=== PATIENT | male | born 1960 ===

== ENCOUNTER 2025-04-12 18:55 | Inpatient (IN) | payer MEDICARE, OTHER ==
[~2025-04-12] VITALS: Ht 177.8 cm; Wt 81.0 kg
[2025-04-12 20:44] LABS: APPEARANCE,URINE CLEAR (CLEAR); BILIRUBIN,URINE NEGATIVE (NEGATIVE); COLOR,URINE YELLOW (YELLOW); GLUCOSE, URINE (UA) NEGATIVE (NEGATIVE); KETONES,URINE NEGATIVE (NEGATIVE); LEUKOCYTE ESTERASE ,URINE NEGATIVE (NEGATIVE); NITRATE,URINE NEGATIVE (NEGATIVE); OCCULT BLOOD,URINE NEGATIVE (NEGATIVE); PROTEIN,URINE 30-70 mg/dL (NEGATIVE); SPECIFIC GRAVITIY, URINE 1.027 (1.003-1.030); UROBILINOGEN,URINE <=1.0 mg/dL (<=1.0)
[2025-04-12 20:52] LABS: ALCOHOL, URINE DRUG SCREEN NEGATIVE (NEGATIVE); AMPHET/METH SCREEN,URINE NEGATIVE (NEGATIVE); BARBITURATE SCREEN, URINE NEGATIVE (NEGATIVE); BENZODIAZEPINES SCREEN,URINE NEGATIVE (NEGATIVE); CANNABINOID SCREEN,URINE NEGATIVE (NEGATIVE); COCAINE SCREEN,URINE NEGATIVE (NEGATIVE); METHADONE SCREEN, URINE NEGATIVE (NEGATIVE); OPIATE SCREEN,URINE POSITIVE (NEGATIVE); PHENCYCLIDINE SCREEN,URINE NEGATIVE (NEGATIVE)
[2025-04-13] MEDS: QUEtiapine FUMARATE 100 MG TABLET PO ONE (00:53)
[2025-04-13] MEDS: LORazepam 1 MG TABLET PO ONE (00:53)
[2025-04-13] MEDS: OxyCODONE HCL/ACETAMINOPHEN 5-325 MG TABLET PO ONE (00:53)
[2025-04-13] MEDS: MELATONIN 3 MG TABLET PO ONE (00:54)
[2025-04-13] MEDS: MIRTAZAPINE 15 MG TABLET PO ONE (00:54)
[2025-04-13] MEDS: haloperidoL 5 MG TABLET PO ONE (01:11)
[2025-04-13] MEDS ORDERED: OFLO5DRO OD (01:15)
[2025-04-13] MEDS ORDERED: XALA2.5OS OS (01:15)
[2025-04-13 03:23] LABS: COVID AG,FIA SOURCE NASAL SWAB
[2025-04-13 04:12] LABS: SARS-COV2 (COVID) ANTIGEN,FIA Negative (Negative)
[2025-04-13] MEDS ORDERED: ZOLPIDEM TARTRATE 10 MG TABLET PO PRN (05:30)
[2025-04-13] MEDS: *CLINICAL-CEFEPIME DOSING CLINICAL ONE (05:53)
[2025-04-13] MEDS ORDERED: ONDANSETRON HCL 4 MG/2 ML VIAL IVP PRN (06:00)
[2025-04-13] MEDS: OxyCODONE HCL/ACETAMINOPHEN 10-325 MG TABLET PO PRN (06:05)
[2025-04-13] MEDS: CEFEPIME HCL 2 GM in DEXTROSE 5%-WATER 50 ML IV ONE (06:36)
[2025-04-13] MEDS: HEPARIN SODIUM,PORCINE 5,000 UNITS/ML VIAL SQ SCH (07:42)
[2025-04-13] MEDS: DOCUSATE SODIUM 100 MG CAPSULE PO SCH (09:00)
[2025-04-13] MEDS: haloperidoL 5 MG TABLET PO PRN (14:08)
[2025-04-13] MEDS: LORazepam 2 MG TABLET PO PRN (14:08)
[2025-04-13] MEDS ORDERED: VANCOMYCIN 1GM/WATER(PEG/NADA) 200 ML IV PRN (16:00)
[2025-04-13] MEDS ORDERED: SODIUM CHLORIDE 0.9% 500 ML IV ONE (18:12)
[2025-04-13] MEDS: CEFEPIME HCL 2 GM in DEXTROSE 5%-WATER 50 ML IV SCH (18:16)
[2025-04-13] MEDS: VANCOMYCIN 1.5 GM/WATER(PEG) 300 ML IV ONE (18:56)
[2025-04-13] MEDS: LATANOPROST 0.005% 2.5 ML OPHTHALMIC SOLUTION OS SCH (19:22)
[2025-04-13] MEDS: ACETAMINOPHEN 325 MG TABLET PO PRN (19:23)
[2025-04-13] MEDS: QUEtiapine FUMARATE 25 MG TABLET PO ONE (20:54)
[2025-04-13] MEDS: ZOLPIDEM TARTRATE 5 MG TABLET PO PRN (20:55)
[2025-04-14 05:22] VITALS: BP 133/87; PULSE 80; RESP 18; TEMP 97.9; O2SAT 97
[2025-04-14 06:51] LABS: ANION GAP 8 mmol/L (8-16); CALCIUM, TOTAL 9.9 mg/dL (8.8-10.5); CARBON DIOXIDE 28 mmol/L (22-29); CHLORIDE 101 mmol/L (98-107); CREATININE 0.72 mg/dL (0.60-1.30); GLOMERULAR FILTR. RATE CALC > 60 mL/min (>60); GLUCOSE,RANDOM 128 mg/dL (70-110); POTASSIUM 4.1 mmol/L (3.5-5.1); SODIUM SERUM 137 mmol/L (136-145); UREA NITROGEN, BLOOD 15 mg/dL (7-18)
[2025-04-14 07:54] VITALS: BP 136/82; PULSE 84; RESP 18; TEMP 97.9; O2SAT 98
[2025-04-14] MEDS: VANCOMYCIN 1.25 GM/WATER(PEG) 250 ML IV SCH (09:06)
[2025-04-14 19:15] VITALS: BP 123/71; PULSE 80; RESP 18; TEMP 97.9; O2SAT 94
[2025-04-14] MEDS: QUEtiapine FUMARATE 100 MG TABLET PO SCH (21:02)
[2025-04-14] MEDS: MIRTAZAPINE 15 MG TABLET PO SCH (21:02)
[2025-04-14] MEDS: MORPHINE SULFATE 2 MG/ML SYRINGE IVP PRN (23:01)
[2025-04-15 05:00] VITALS: BP 116/73; PULSE 83; RESP 18; TEMP 98.1; O2SAT 95
[2025-04-15 08:21] VITALS: BP 118/75; PULSE 85; RESP 18; TEMP 97.8; O2SAT 96
[2025-04-15] MEDS: haloperidoL LACTATE 5 MG/ML VIAL IM ONE (09:00)
[2025-04-15] MEDS ORDERED: MIRT-89 PO (11:40)
[2025-04-15] MEDS ORDERED: QUET100T PO (11:41)
[2025-04-15] MEDS ORDERED: LORA2TAB18 PO (11:42)
[2025-04-15] MEDS ORDERED: ACET-2247 PO (11:42)
[2025-04-15] MEDS ORDERED: HALO5TAB23 PO (11:43)
[2025-04-15] MEDS ORDERED: AMOX1TAB15 PO (11:46)
[2025-04-15 12:02] VITALS: BP 114/78; PULSE 75; RESP 18; TEMP 97.8; O2SAT 95
== END 2025-04-15 14:40 | DRG 603 ==
LOC: EMS 18:55 → EDH 04-13 05:48 → 4E 04-13 09:31 → 6S 04-13 19:35
PROVIDERS: ADMIT Internal Medicine; ATTEND Internal Medicine
PROC: GZ56ZZZ Individual Psychotherapy, Supportive (ICD-10-PCS; principal; 2025-04-14)
DX: L03.114 Cellulitis of left upper limb (principal); F31.9 Bipolar disorder, unspecified; K59.00 Constipation, unspecified; Z20.822 Contact with and (suspected) exposure to COVID-19; S41.002A Unspecified open wound of left shoulder, initial encounter; X58.XXXA Exposure to other specified factors, initial encounter; Y93.89 Activity, other specified; Y92.89 Other specified places as the place of occurrence of the external cause; Y99.8 Other external cause status; F10.20 Alcohol dependence, uncomplicated; H40.9 Unspecified glaucoma
CPT/HCPCS: 71045; 80048; 80307; 81003; 87081; 99285; J0692; J1630; J1644; J2270; J7040; J7060; 36415-L1; 36415-TC